=== PATIENT | male | born 1960 ===

== ENCOUNTER 2017-01-29 06:18 | Emergency (ER) | payer MEDICAID, MEDICARE, OTHER ==
[2017-01-29 06:33] VITALS: O2SAT 97
[2017-01-29] MEDS ORDERED: TDAP Vaccine 0.5 mL Syr IM ONE (07:08)
--- NOTE | 2017-01-29 07:29 | ED PDOC ---
HPI: Headache Time Seen by Provider: 01/29/17 07:04 Chief Complaint (Nursing): Headache Chief Complaint (Provider): Headache History Per: Patient History/Exam Limitations: no limitations Onset/Duration Of Symptoms: Hrs (This morning) Current Symptoms Are (Timing): Still Present Severity: Moderate Quality: Sharp Additional Complaint(s): Blake Go is a 56-year-old male with a past medical history of mental disorder and hypertension, who presents to the ED for an evaluation of headaches , after sustaining a head laceration this morning. 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 Denies loss of consciousness, vomiting, nausea, and change in vision. Date of his last tetanus is unknown. PMD: Dr. Abdoulaye Rudd MD Past Medical History Reviewed: Historical Data, Nursing Documentation, Vital Signs Vital Signs: Last Vital Signs Temp 98.0 F 01/29/17 06:30 Pulse 90 01/29/17 06:30 Resp 17 01/29/17 06:30 BP 145/84 01/29/17 06:30 Pulse Ox 97 01/29/17 06:30 - Medical History PMH: HTN, Schizophrenia - Surgical History Surgical History: No Surg Hx - Family History Family History: States: Unknown Family Hx - Social History Current smoker - smoking cessation education provided: No Alcohol: None Drugs: Denies - Immunization History Hx Tetanus Toxoid Vaccination: No - Home Medications Home Medications: Ambulatory Orders Medication Instructions Recorded Lisinopril [Zestril] 5 mg PO DAILY 01/29/17 Risperidone [Risperdal] 3 mg PO DAILY 01/29/17 - Allergies Allergies/Adverse Reactions: Allergies Allergy/AdvReac Type Severity Reaction Status Date / Time Penicillins Allergy RASH Verified 01/29/17 06:37 shrimp Allergy Unknown ANAPHYLAXIS Uncoded 01/29/17 06:37 Review of Systems ROS Statement: Except As Marked, All Systems Reviewed And Found Negative Eyes: Negative for: Vision Change Gastrointestinal: Negative for: Nausea, Vomiting Skin: Positive for: Other (Laceration to the scalp) Neurological: Positive for: Headache. Negative for: Other (Loss of consciousness) Physical Exam - Reviewed Nursing Documentation Reviewed: Yes Vital Signs Reviewed: Yes - Physical Exam Appears: Positive for: Well, Non-toxic, No Acute Distress Head Exam: Positive for: ATRAUMATIC, NORMOCEPHALIC. Negative for: NORMAL INSPECTION (2.5 cm linear head laceration on the vertex of the skull, simple in nature. No active bleeding noted.) Skin: Positive for: Normal Color, Warm, Dry Eye Exam: Positive for: EOMI, Normal appearance, PERRL ENT: Positive for: Normal ENT Inspection Neck: Positive for: Normal, Painless ROM, Supple Cardiovascular/Chest: Positive for: Regular Rate, Rhythm. Negative for: Murmur Respiratory: Positive for: Normal Breath Sounds. Negative for: Accessory Muscle Use, Respiratory Distress Gastrointestinal/Abdominal: Positive for: Normal Exam, Soft. Negative for: Tenderness Back: Positive for: Normal Inspection. Negative for: Vertebral Tenderness Extremity: Positive for: Normal ROM. Negative for: Pedal Edema Neurologic/Psych: Positive for: Alert, Oriented, Other (Neurologically intact with 5/5 strength. ) - ECG O2 Sat by Pulse Oximetry: 97 (RA) Pulse Ox Interpretation: Normal Medical Decision Making Medical Decision Making: Time: 07:15 Initial impression: Head laceration Initial plan: ---Head CT to rule out intracranial injury and suture ---Tylenol 650 mg PO ---TDAP vaccine 0.5 mL IM ---Reassessment 08:[address] FINDINGS: BRAIN: There is a small amount of low density in the frontal lobes bilaterally compatible with remote ischemic or posttraumatic insult. No acute hemorrhage. Cohen white differentiation is intact. No evidence of acute territorial infarct. No evidence of extra-axial fluid collection. No evidence of mass. No acute abnormality evident. VENTRICLES: There is mild volume loss greatest in the frontal regions. There is no evidence of hydrocephalus. BONES/JOINTS: No acute fracture. SOFT TISSUES: Unremarkable as visualized. VASCULATURE: There are carotid arteries calcifications. SINUSES: Unremarkable as visualized. No acute sinusitis. MASTOID AIR CELLS: Unremarkable as visualized. No mastoid effusion. IMPRESSION: 1. No evidence of acute intracranial finding. 08:42 ---Lidocaine 5 mL IJ Time: 09:38 Upon provider reevaluation patient is feeling better, is medically stable, and requires no further treatment in the ED at this time. Patient will be discharged home. Counseling was provided and all questions were answered regarding diagnosis and need for follow up with primary care doctor or referred clinic for STAPLE REMOVAL IN 6-7 DAYS. USE BACITRACIN 2X DAILY FOR 5 DAYS. DO NOT GET AREA WET FOR 4 DAYS. There is agreement to discharge plan. Return if symptoms persist or worsen. Clinical Impression: Head injury and scalp laceration Scribe Attestation: Documented by Lilibeth Lanier, acting as a scribe for Slade Sullivan MD. Provider Scribe Attestation: All medical record entries made by the Scribe were at my direction and personally dictated by me. I have reviewed the chart and agree that the record accurately reflects my personal performance of the history, physical exam, medical decision making, and the department course for this patient. I have also personally directed, reviewed, and agree with the discharge instructions and disposition. Procedures - Laceration/Wound Repair Head Wound Length (cm): 2.5 Wound's Depth, Shape: linear Wound Explored: clean Irrigated w/ Saline (ccs): 250 Anesthesia: 1% Lidocaine (2%) Volume Anesthetic (ccs): 5 Wound Debrided: minimal Wound Repaired With: [place] (2 placed within margin approximation after anesthetized with lidocaine) Wound Complexity: Simple Progress: --Patient tolerated will with no complications. BACITRACIN applied. Disposition - Clinical Impression Clinical Impression: Head injury, Scalp laceration - Patient ED Disposition Is Patient to be Admitted: No Counseled Patient/Family Regarding: Diagnosis, Need For Followup - Disposition Referrals: [facility] [Outside] Disposition: Routine/Home Disposition Time: 09:38 Condition: STABLE Additional Instructions: See your doctor for STAPLE REMOVAL IN 6-7 DAYS. USE BACITRACIN 2X DAILY FOR 5 DAYS. DO NOT GET AREA WET FOR 4 DAYS. Instructions: Laceration (ED), Head Injury (ED), Staple Care (ED) Forms: [employer] ([place]), [facility] ED School/Work Excuse - POA Present On Arrival: Falls Or Trauma
[2017-01-29] MEDS ORDERED: Lidocaine 2% Inj (20ml) IJ ONE (08:42)
[2017-01-29] MEDS ORDERED: Lidocaine 1% Inj (20ml) ONE (08:47)
--- NOTE | 2017-01-29 09:07 | CT ---
PROCEDURE: CT HEAD WITHOUT CONTRAST. HISTORY: r/o ICH COMPARISON: None available. TECHNIQUE: Axial computed tomography images were obtained through the head/brain without intravenous contrast. Radiation dose: Total exam DLP = 959.80 mGy-cm. This CT exam was performed using one or more of the following dose reduction techniques: Automated exposure control, adjustment of the mA and/or kV according to patient size, and/or use of iterative reconstruction technique. FINDINGS: HEMORRHAGE: No intracranial hemorrhage. BRAIN: Cohen-white matter differentiation is preserved. There is no mass, mass effect or abnormal extra-axial fluid collection. VENTRICLES: The ventricles are normal in size, shape and configuration. There is nonspecific prominence of bifrontal extra-axial CSF spaces. CALVARIUM: The skull base and calvarium are normal. PARANASAL SINUSES: Unremarkable as visualized. No significant inflammatory changes. MASTOID AIR CELLS: Unremarkable as visualized. No inflammatory changes. OTHER FINDINGS: None. IMPRESSION: No acute intracranial abnormality.
[2017-01-29 09:42] VITALS: BP 128/78; PULSE 78; RESP 20; TEMP 97.6
== END 2017-01-29 09:44 | disposition home or self-care (01) ==
LOC: H.ER 06:18
DX: S01.01XA Laceration without foreign body of scalp, initial encounter (principal); W22.09XA Striking against other stationary object, initial encounter; Y99.0 Civilian activity done for income or pay